=== PATIENT | female | born 1950 | race Caucasian/White ===

== ENCOUNTER → 2017-07-30 | Outpatient (CLI) | payer MEDICARE ==
[~2017-07-30] MED LIST: ALBU90I INH; ASCO500 PO; ASPI81CH PO; ATOR20 PO; CALCA400CH; DULO60 PO; FOLI1 PO; HYDR1TAB94 PO; K-Dur20 MEQ PO; LOVA20 PO; Lovastatin20 MG PO; MESA400ER PO; MULVITMIND PO; Norco 10-325 T1 EACH PO; Norco 7.5-3251 EACH PO; ONDA4ODT PO; OXYACE5T PO; PANT40 PO; PRED10 PO; PRED20 PO; Prednisone20 MG PO; RALO60 PO; SERT100 PO; SULF500A PO; TRAZ100 PO; TRAZ50 PO; TRIHYD253B PO; Vitamin D2000 UNIT PO; Zofran Odt4 MG SL
== END | disposition home or self-care (01) ==
LOC: LAB SHORT 07:30 → PLD 07:30
DX: D22.5 Melanocytic nevi of trunk (principal); D22.62 Melanocytic nevi of left upper limb, including shoulder; D22.61 Melanocytic nevi of right upper limb, including shoulder
CPT/HCPCS: 88305

== ENCOUNTER → 2017-10-04 | Outpatient (CLI) | payer MEDICARE ==
[~2017-10-04] MED LIST changes: -CALCA400CH
== END | disposition home or self-care (01) ==
LOC: PLD 12:07 → LAB SHORT 12:07
DX: L72.0 Epidermal cyst (principal)
CPT/HCPCS: 88304

== ENCOUNTER 2018-03-20 10:03 | Day surgery (SDC) | payer MEDICARE ==
[~2018-03-20] VITALS: Ht 160 cm; Wt 55.5 kg
[2018-03-20] MEDS ORDERED: CALCA400CH (10:37)
== END 2018-03-20 11:42 | disposition home or self-care (01) ==
LOC: ORSCSDS 10:03
PROVIDERS: Internal Medicine Gastroenterology
PROC: 0DBE8ZX Excision of Large Intestine, Via Natural or Artificial Opening Endoscopic, Diagnostic (ICD-10-PCS; principal; 2018-03-20 11:15)
PROC: 0DBH8ZX Excision of Cecum, Via Natural or Artificial Opening Endoscopic, Diagnostic (ICD-10-PCS; principal; 2018-03-20 11:15)
PROC: 0DBN8ZX Excision of Sigmoid Colon, Via Natural or Artificial Opening Endoscopic, Diagnostic (ICD-10-PCS; principal; 2018-03-20 11:15)
DX: K51.00 Ulcerative (chronic) pancolitis without complications (principal); D12.5 Benign neoplasm of sigmoid colon; D12.0 Benign neoplasm of cecum; K63.89 Other specified diseases of intestine; G62.9 Polyneuropathy, unspecified; Z87.891 Personal history of nicotine dependence; Z79.899 Other long term (current) drug therapy; K64.8 Other hemorrhoids
CPT/HCPCS: 88305; J7120

== ENCOUNTER → 2018-07-16 | Outpatient (CLI) | payer MEDICARE ==
[~2018-07-16] MED LIST changes: +CALCA400CH
== END ==
LOC: PLD 14:07 → LAB SHORT 14:07 → LAB 14:07
DX: D22.5 Melanocytic nevi of trunk (principal); D22.61 Melanocytic nevi of right upper limb, including shoulder
CPT/HCPCS: 88305

== ENCOUNTER → 2019-04-18 | Outpatient (CLI) | payer MEDICARE ==
[2019-04-18 11:34] LABS: BASOPHILS ABSOLUTE AUTO 0.11 K/mm3 (0.00-0.23); BASOPHILS PERCENT AUTO 1 % (0-2); EOSINOPHILS ABSOLUTE AUTO 0.05 K/mm3 (0.00-0.68); EOSINOPHILS PERCENT AUTO 0 % (0-6); Hematocrit 40.3 % (33.0-51.0); Hemoglobin 13.4 g/dL (11.5-16.0); IMMATURE GRAN ABSOLUTE AUTO 0.05 K/mm3 (0.00-0.10); IMMATURE GRAN PERCENT AUTO 0 % (0-1); LYMPHOCYTES ABSOLUTE AUTO 1.86 K/mm3 (0.84-5.20); LYMPHOCYTES PERCENT AUTO 16 % (21-46); MONOCYTES ABSOLUTE AUTO 0.62 K/mm3 (0.16-1.47); MONOCYTES PERCENT AUTO 5 % (4-13); Mean Corpuscular HGB 29.8 pg (26.0-34.0); Mean Corpuscular HGB Conc 33.3 g/dL (31.5-36.5); Mean Corpuscular Volume 90 fL (80-100); Mean Platelet Volume 9.9 fL (9.1-12.4); NEUTROPHILS ABSOLUTE AUTO 8.69 K/mm3 (1.96-9.15); NEUTROPHILS PERCENT AUTO 77 % (41-73); Platelet Count 446 K/mm3 (150-400); RDW Coefficient Variation 13.7 % (11.7-14.2); RDW Standard Deviation 45.3 fL (35.1-46.3); White Blood Cell Count 11.38 K/mm3 (4.00-11.30)
[2019-04-18 11:55] LABS: Alanine Aminotransfer (ALT/SGP 15 U/L (12-78); Albumin, Blood 3.5 g/dL (3.4-5.0); Albumin/Globulin Ratio 0.8 (0.8-1.8); Alk Phos 161 U/L (50-136); Anion Gap 8 mmol/L (6-16); Aspartate Aminotrans (AST/SGOT 16 U/L (12-37); Bilirubin, Total 0.6 mg/dL (0.1-1.0); Blood Urea Nitrogen 11 mg/dL (8-24); Bun/Creatinine Ratio 12.6 (12.0-20.0); CO2, Blood 25 mmol/L (21-32); Calcium, Blood 9.3 mg/dL (8.5-10.1); Chloride, Blood 101 mmol/L (98-108); Creatinine, Blood 0.87 mg/dL (0.40-1.00); Globulin, Blood 4.6 g/dL (2.2-4.0); Glomerular Filtration Rate >60 (60-); Glucose, Blood 113 mg/dL (70-99); Potassium, Blood 3.4 mmol/L (3.5-5.5); Sodium, Blood 134 mmol/L (136-145); Total Protein, Blood 8.1 g/dL (6.4-8.2)
== END | disposition home or self-care (01) ==
LOC: LAB SHORT 11:27 → LAB 11:27
PROVIDERS: Physician Assistant
DX: R10.9 Unspecified abdominal pain (principal); R53.83 Other fatigue
CPT/HCPCS: 80053; 83690; 85025

== ENCOUNTER 2020-01-11 11:49 | Emergency (ER) | payer MEDICARE ==
[~2020-01-11] VITALS: Ht 152.4 cm; Wt 54.4 kg
[2020-01-11] MEDS ORDERED: HYDR1TAB94 PO ×2 (15:20→16:05)
[2020-01-11] MEDS ORDERED: AMOCLA875 PO ×2 (15:20→16:05)
== END 2020-01-11 15:40 | disposition home or self-care (01) ==
LOC: ER 11:49
DX: S81.852A Open bite, left lower leg, initial encounter (principal); Z88.8 Allergy status to other drugs, medicaments and biological substances; Z79.899 Other long term (current) drug therapy; Z85.3 Personal history of malignant neoplasm of breast; Z87.891 Personal history of nicotine dependence; W54.0XXA Bitten by dog, initial encounter
CPT/HCPCS: 12001; 12002; 12032; 36415; 73590; 90471; 96374-59; 96375-59; 96376-59; 99283-25; J2270; J2405

== ENCOUNTER → 2020-03-31 | Outpatient (CLI) | payer MEDICARE ==
[~2020-03-31] MED LIST changes: +AMOCLA875 PO
== END ==
LOC: LAB SHORT 13:54 → PLD 13:54
DX: D48.5 Neoplasm of uncertain behavior of skin (principal)
CPT/HCPCS: 88304

== ENCOUNTER → 2021-07-28 | Outpatient (CLI) | payer MEDICARE ==
[2021-07-28 17:57] LABS: Adenovirus F 40/41 Not Detected (NOT DETECT); Astrovirus Not Detected (NOT DETECT); Campylobacter Sp Not Detected (NOT DETECT); Cryptosporidium Not Detected (NOT DETECT); Cyclospora Cayetanensis Not Detected (NOT DETECT); E. Coli O157 Not Detected (NOT DETECT); Entamoeba Histolytica Not Detected (NOT DETECT); Enteroaggregative E. coli-EAEC Not Detected (NOT DETECT); Enteropathogenic E. coli-EPEC Not Detected (NOT DETECT); Enterotoxigenic E. coli-ETEC Not Detected (NOT DETECT); Giardia Lamblia Not Detected (NOT DETECT); Norovirus GI/GII Not Detected (NOT DETECT); Plesiomonas Shigelloides Not Detected (NOT DETECT); Rotavirus A Not Detected (NOT DETECT); Salmonella Sp Not Detected (NOT DETECT); Sapovirus Not Detected (NOT DETECT); Shiga Toxin-prod E. coli-STEC Not Detected (NOT DETECT); Shigella/Enteroin E. coli-EIEC Not Detected (NOT DETECT); Vibrio Cholerae Not Detected (NOT DETECT); Vibrio Sp Not Detected (NOT DETECT); Yersinia Enterocolitica Not Detected (NOT DETECT)
== END | disposition home or self-care (01) ==
LOC: LAB SHORT 11:30
PROVIDERS: Student in an Organized Health Care Education/Training Program
DX: R19.7 Diarrhea, unspecified (principal)
CPT/HCPCS: 0097U

== ENCOUNTER 2021-10-10 07:45 | Day surgery (SDC) | payer MEDICARE ==
[~2021-10-10] VITALS: Ht 160 cm; Wt 53.2 kg
== END 2021-10-10 10:10 | disposition home or self-care (01) ==
LOC: ORSCSDS 07:45
PROVIDERS: Student in an Organized Health Care Education/Training Program
PROC: 0DBE8ZX Excision of Large Intestine, Via Natural or Artificial Opening Endoscopic, Diagnostic (ICD-10-PCS; principal; 2021-10-10 09:00)
PROC: 0DBN8ZX Excision of Sigmoid Colon, Via Natural or Artificial Opening Endoscopic, Diagnostic (ICD-10-PCS; principal; 2021-10-10 09:00)
DX: K51.00 Ulcerative (chronic) pancolitis without complications (principal); D12.5 Benign neoplasm of sigmoid colon; E78.5 Hyperlipidemia, unspecified; F32.A Depression, unspecified; Z79.899 Other long term (current) drug therapy
CPT/HCPCS: 88305; J2704; J7120

== ENCOUNTER 2022-04-06 11:15 | Day surgery (SDC) | payer MEDICARE ==
[~2022-04-06] VITALS: Ht 157.5 cm; Wt 52.2 kg
--- NOTE | 2022-04-06 13:05 | NUR ---
04/06/22 1305 Nabor Patel PT D/C'D NO C/O PAIN,NV,DIZZINESS. VS WNL, RESP ON RA CTA, PT VU D/C INSTRUCTIONS, PT D/C'D HOME AMBU TO CAR DRIVEN BY , DENIES ANY OTHER NEEDS.
== END 2022-04-06 13:05 | disposition home or self-care (01) ==
LOC: ORSCSDS 11:15
PROVIDERS: Ophthalmology
PROC: 08DK3ZZ Extraction of Left Lens, Percutaneous Approach (ICD-10-PCS; principal; 2022-04-06 12:30)
DX: H25.13 Age-related nuclear cataract, bilateral (principal); I10 Essential (primary) hypertension; J44.9 Chronic obstructive pulmonary disease, unspecified; E78.5 Hyperlipidemia, unspecified; Z87.11 Personal history of peptic ulcer disease; Z79.82 Long term (current) use of aspirin; Z79.899 Other long term (current) drug therapy
CPT/HCPCS: 93005; 93010; J2001; J2250; J3010; J3301; J7040; V2632

== ENCOUNTER 2024-05-20 06:33 | Day surgery (SDC) | payer MEDICARE ==
[~2024-05-20] VITALS: Ht 157.5 cm; Wt 118.4 kg
[~2024-05-20 06:33] MED LIST changes: +BUPR150ER PO; +DULO30 PO; +FOSAMAX70 MG PO; +SERT25 PO
[2024-05-20] MEDS ORDERED: propofoL 40 ML IV ONE (07:38)
[2024-05-20] MEDS ORDERED: Lactated Ringer's 1,000 ML IV ONE ×2 (07:39→07:55)
[2024-05-20 08:48] VITALS: BP 124/76
== END 2024-05-20 08:56 | disposition home or self-care (01) ==
LOC: ORSCSDS 06:33
PROVIDERS: Internal Medicine Gastroenterology
PROC: 0DBE8ZX Excision of Large Intestine, Via Natural or Artificial Opening Endoscopic, Diagnostic (ICD-10-PCS; principal; 2024-05-20 08:00)
PROC: 0DBH8ZX Excision of Cecum, Via Natural or Artificial Opening Endoscopic, Diagnostic (ICD-10-PCS; principal; 2024-05-20 08:00)
DX: K50.90 Crohn's disease, unspecified, without complications (principal); K63.5 Polyp of colon; E78.5 Hyperlipidemia, unspecified; F32.A Depression, unspecified; Z79.899 Other long term (current) drug therapy
CPT/HCPCS: 88305; J2704; J7120

== ENCOUNTER → 2024-05-30 | Outpatient (CLI) | payer MEDICARE ==
[2024-05-30 16:18] LABS: Campylobacter Sp Not Detected (NOT DETECT); Cryptosporidium Not Detected (NOT DETECT); E. Coli O157 Not Detected (NOT DETECT); Enteroaggregative E. coli-EAEC Not Detected (NOT DETECT); Enteropathogenic E. coli-EPEC Not Detected (NOT DETECT); Enterotoxigenic E. coli-ETEC Not Detected (NOT DETECT); Plesiomonas Shigelloides Not Detected (NOT DETECT); Salmonella Sp Not Detected (NOT DETECT); Shiga Toxin-prod E. coli-STEC Not Detected (NOT DETECT); Shigella/Enteroin E. coli-EIEC Not Detected (NOT DETECT); Vibrio Cholerae Not Detected (NOT DETECT); Vibrio Sp Not Detected (NOT DETECT); Yersinia Enterocolitica Not Detected (NOT DETECT)
[2024-05-30 16:19] LABS: Adenovirus F 40/41 Not Detected (NOT DETECT); Astrovirus Not Detected (NOT DETECT); Cyclospora Cayetanensis Not Detected (NOT DETECT); Entamoeba Histolytica Not Detected (NOT DETECT); Giardia Lamblia Not Detected (NOT DETECT); Norovirus GI/GII Not Detected (NOT DETECT); Rotavirus A Not Detected (NOT DETECT); Sapovirus Not Detected (NOT DETECT)
== END | disposition home or self-care (01) ==
LOC: LAB SHORT 13:09 → LAB 13:09 → LAB FUT 05-29 06:55
PROVIDERS: Physician Assistant Medical
DX: K50.10 Crohn's disease of large intestine without complications (principal)
CPT/HCPCS: 87507

== ENCOUNTER 2024-06-25 03:44 | Day surgery (SDC) | payer MEDICARE ==
[~2024-06-25] VITALS: Wt 57.2 kg
[2024-06-25] MEDS ORDERED: Vedolizumab 300 MG in NS 250 ML IV SCH (06:00)
[2024-06-25] MEDS ORDERED: DULO30 PO (10:40)
[2024-06-25 10:44] VITALS: BP 115/65
[2024-06-25 11:58] VITALS: BP 145/70
== END 2024-06-25 12:00 | disposition home or self-care (01) ==
LOC: ATC 03:44
DX: K50.10 Crohn's disease of large intestine without complications (principal); Z88.5 Allergy status to narcotic agent; Z88.8 Allergy status to other drugs, medicaments and biological substances; Z79.899 Other long term (current) drug therapy
CPT/HCPCS: 96365; J3380; J7050

== ENCOUNTER 2024-07-09 06:17 | Day surgery (SDC) | payer MEDICARE ==
[~2024-07-09 06:17] MED LIST changes: +Vedolizumab 300 MG in NS 250 ML IV SCH
[2024-07-09 08:14] VITALS: BP 144/79
[2024-07-09] MEDS ORDERED: Prednisone10 MG PO (08:17)
[2024-07-09] MEDS ORDERED: ENTYVIO300 M1 IV (08:18)
== END 2024-07-09 09:30 | disposition home or self-care (01) ==
LOC: ATC 06:17
DX: K50.10 Crohn's disease of large intestine without complications (principal); E78.5 Hyperlipidemia, unspecified; Z87.891 Personal history of nicotine dependence; Z79.899 Other long term (current) drug therapy
CPT/HCPCS: 96365; J3380; J7050

== ENCOUNTER → 2025-02-25 | Outpatient (CLI) | payer MEDICARE ==
[~2025-02-25] MED LIST changes: +ENTYVIO300 M1 IV; +Prednisone10 MG PO; -Vedolizumab 300 MG in NS 250 ML IV SCH
[2025-02-27 15:27] LABS: CALPROTECTIN,FECAL 673 ug/g (<=49)
== END | disposition home or self-care (01) ==
LOC: LAB 16:42 → LAB SHORT 16:42
PROVIDERS: Physician Assistant Medical
DX: K50.10 Crohn's disease of large intestine without complications (principal)
CPT/HCPCS: 83993

== ENCOUNTER 2025-03-03 08:35 | Day surgery (SDC) | payer MEDICARE ==
[~2025-03-03] VITALS: Ht 157.5 cm; Wt 55.8 kg
[~2025-03-03 08:35] MED LIST changes: +NS 1,000 ML IV ONE
[2025-03-03] MEDS ORDERED: Amlodipine Bes2.5 MG (08:47)
[2025-03-03] MEDS ORDERED: ROLAIDS ADV 101 EACH (08:47)
[2025-03-03] MEDS ORDERED: ZYRTEC10 M1 (08:47)
[2025-03-03] MEDS ORDERED: VITAMIN D350 MC3 (08:48)
--- NOTE | 2025-03-03 10:21 | NUR ---
03/03/25 1021 Anival Bueno NO UPPER ENDOSCOPY TO BE PERFORMED PER DR. LAWRENCE/PT. SCOPE SWITCHED FROM RED TO ORANGE AT 0955.
[2025-03-03 10:58] VITALS: BP 132/67
== END 2025-03-03 10:45 | disposition home or self-care (01) ==
LOC: ORSCSDS 08:35
PROVIDERS: Specialist
PROC: 0DBN8ZX Excision of Sigmoid Colon, Via Natural or Artificial Opening Endoscopic, Diagnostic (ICD-10-PCS; principal; 2025-03-03 10:00)
PROC: 0DBK8ZX Excision of Ascending Colon, Via Natural or Artificial Opening Endoscopic, Diagnostic (ICD-10-PCS; principal; 2025-03-03 10:00)
PROC: 0DBH8ZX Excision of Cecum, Via Natural or Artificial Opening Endoscopic, Diagnostic (ICD-10-PCS; principal; 2025-03-03 10:00)
PROC: 0DBM8ZX Excision of Descending Colon, Via Natural or Artificial Opening Endoscopic, Diagnostic (ICD-10-PCS; principal; 2025-03-03 10:00)
PROC: 0DBL8ZX Excision of Transverse Colon, Via Natural or Artificial Opening Endoscopic, Diagnostic (ICD-10-PCS; principal; 2025-03-03 10:00)
DX: K50.10 Crohn's disease of large intestine without complications (principal); K52.9 Noninfective gastroenteritis and colitis, unspecified; Z86.0101 Personal history of adenomatous and serrated colon polyps; E78.5 Hyperlipidemia, unspecified; F32.A Depression, unspecified; Z86.16 Personal history of COVID-19; Z79.899 Other long term (current) drug therapy; Z87.891 Personal history of nicotine dependence
CPT/HCPCS: 88305; J2704; J7040